=== PATIENT | female | born 1980 | race Hispanic/Latino ===

== ENCOUNTER 2023-04-26 13:42 | Emergency (ER) | payer OTHER ==
[~2023-04-26] VITALS: Ht 175.3 cm; Wt 97.7 kg
[2023-04-26] MEDS ORDERED: LEVOTHYROXINE50 MCG PO (14:04)
[2023-04-26] MEDS ORDERED: KETOROLAC TROMETHAMINE 30 MG/ML VIAL IV STA (14:38)
[2023-04-26] MEDS ORDERED: FAMOTIDINE 20 MG/2 ML VIAL IV STA (14:39)
[2023-04-26] MEDS ORDERED: ONDANSETRON HCL INJ 2MG/ML 2ML 2 MG/ML VIAL ONE (14:43)
[2023-04-26] MEDS ORDERED: ONDANSETRON HCL INJ 2MG/ML 2ML 2 MG/ML VIAL IV STA (14:44)
[2023-04-26] MEDS ORDERED: SODIUM CHLORIDE 0.9% 1000ML 1,000 ML IV SCH (14:45)
[2023-04-26] MEDS ORDERED: IOPAMIDOL 370 MG/ML 100 ML INFUS..BTL INJ ONE (15:45)
[2023-04-26 17:14] VITALS: O2SAT 98
[2023-04-26] MEDS ORDERED: NAPROSYN500 MG PO (17:16)
[2023-04-26] MEDS ORDERED: CYCLOBENZAPRINE10 MG PO (17:17)
[2023-04-26] MEDS ORDERED: LEVOTHYROXINE137 MCG PO (17:18)
[2023-04-26] MEDS ORDERED: ONDANSETRON ODT4 MG PO (17:32)
== END 2023-04-26 17:31 | disposition home or self-care (01) ==
LOC: FSED 14:04
DX: R11.2 Nausea with vomiting, unspecified (principal); R53.83 Other fatigue; R53.1 Weakness; S39.012A Strain of muscle, fascia and tendon of lower back, initial encounter; M47.896 Other spondylosis, lumbar region; E03.9 Hypothyroidism, unspecified
CPT/HCPCS: 36415; 74177; 80048; 80076; 81003; 81025; 82553; 84443; 84484; 85025; 93005; 96374; 96375; 99284; J1885; J2405; J7030; Q9967

== ENCOUNTER 2023-09-24 08:59 | Emergency (ER) | payer OTHER ==
[~2023-09-24] VITALS: Ht 175.3 cm; Wt 99.1 kg
[~2023-09-24 08:59] MED LIST: CYCLOBENZAPRINE10 MG PO; LEVOTHYROXINE137 MCG PO; LEVOTHYROXINE50 MCG PO; NAPROSYN500 MG PO; ONDANSETRON ODT4 MG PO
[2023-09-24] MEDS ORDERED: IBUPROFEN 600 MG TAB PO STA (09:16)
[2023-09-24] MEDS ORDERED: LEVOTHYROXINE75 MCG PO (09:20)
[2023-09-24 10:31] VITALS: O2SAT 99
[2023-09-24] MEDS ORDERED: LIFESTYLECOMFO1 EACH TOP (10:38)
[2023-09-24] MEDS ORDERED: IBUPROFEN600 MG PO (10:38)
== END 2023-09-24 10:47 | disposition home or self-care (01) ==
LOC: FSED 09:07
DX: M25.562 Pain in left knee (principal); M79.671 Pain in right foot; I83.93 Asymptomatic varicose veins of bilateral lower extremities
CPT/HCPCS: 99283

== ENCOUNTER 2023-12-24 19:25 | Emergency (ER) | payer OTHER ==
[~2023-12-24] VITALS: Ht 175.3 cm; Wt 99.8 kg
[~2023-12-24 19:25] MED LIST changes: +IBUPROFEN600 MG PO; +LEVOTHYROXINE75 MCG PO; +LIFESTYLECOMFO1 EACH TOP
[2023-12-24] MEDS ORDERED: CORICIDIN HBP1 EACH PO (20:02)
[2023-12-24] MEDS ORDERED: IBUPROFEN600 MG PO (20:03)
[2023-12-24] MEDS ORDERED: PROVENTIL HFA6.7 GM INH (20:04)
[2023-12-24 20:19] VITALS: BP 141/75; PULSE 72; RESP 18; TEMP 98.3; O2SAT 98
== END 2023-12-24 20:19 | disposition home or self-care (01) ==
LOC: FSED 19:29
DX: R05.9 Cough, unspecified (principal); U07.1 COVID-19; R51.9 Headache, unspecified; E03.9 Hypothyroidism, unspecified; F41.9 Anxiety disorder, unspecified
CPT/HCPCS: 99282